=== PATIENT | female | born 1960 | race Caucasian/White ===

== ENCOUNTER 2020-12-13 15:35 | Inpatient (IN) | payer OTHER ==
[~2020-12-13] VITALS: Ht 165.1 cm; Wt 94.0 kg
[~2020-12-13 15:35] MED LIST: ALDACTONE25 MG PO; ALEVE220 MG PO; ANTIBIOTIC; ASPIR 8181 MG PO; ASPIRIN EC81 M1 PO; BENTYL 20 MG TA20 M1 PO; BUMETANIDE 1 MG1 M1 PO; BUSPIRONE HCL10 MG PO; BYDUREON2 MG SQ; CELEXA20 MG PO; COZAAR 50 MG TA50 M1 PO; COZAAR100 MG PO; CRESTOR20 MG PO; EFFIENT10 MG PO; FLAGYL500 M1 PO; FUROSEMIDE 40 M40 MG PO; GLIMEPIRIDE4 MG PO; GLIPIZIDE 10 MG10 MG PO; GLUCOPHAGE XR750 MG PO; GLUCOPHAGE500 MG PO; GLYBURIDE 5 MG T5 M1 PO; HYZAAR 100-12.1 EACH PO; IPRAT-ALBUT 0.5-3 ML INH; IRON325 M1 PO; JANUVIA100 MG PO; LEVAQUIN 500 M500 M2 PO; LISINOPRIL10 MG PO; LISINOPRIL20 MG PO; METOPROLOL SUC100 MG PO; MUPIROCIN22 GM TOP; NEURONTIN 300300 M1 PO; NEURONTIN600 MG PO; NICOTINE TRANSD21 M1 TRANSDERM; NITROGLYCERIN0.4 MG SUBLING; NITROQUICK0.4 MG SL; NORCO 5-325 TA1 EAC1 PO; NORVASC10 MG PO; OMEPRAZOLE40 MG PO; OXYCODONE-ACET1 EACH PO; PERCOCET 5-3251 EACH PO; PERCOCET 7.5-31 EACH PO; PERCOCET PO; PLAVIX 75 MG TA75 M1 PO; PREDNISONE 10 M10 MG PO; PREDNISONE 20 M20 MG PO; ROCEPHIN 11 GM/1001 IV; SPIRONOLACTONE25 MG PO; TOPROL XL100 MG PO; TOPROL XL50 MG PO; TOUJEO SOL300 UNIT/1 SUBQ; TRELEGY ELLIPT1 EACH INH; TRESIBA FL200 UNIT/1 SUBQ; VANCO 1.251.25 GM/25 IVPB; VENTOLIN HFA 1818 GM INH; VITAMIN B-121000 MC2 SUBLING; XANAX 0.25 MG0.25 MG PO; XANAX 0.5 MG0.5 M1 PO
[2020-12-13 15:40] VITALS: BP 144/64
--- NOTE | 2020-12-13 16:06 | NUR ---
TO UNIT BY CART FROM [facility], REPORT FROM REBA SANON. SWABBED FOR COVID IMMEDIATELY D/T DR. PATEL'S ORDER. ORIENTED TO UNIT, FALL PRECAUTIONS.
[2020-12-13 19:33] VITALS: BP 141/50
[2020-12-13 23:50] VITALS: BP 127/59
[2020-12-14] VITALS (66 sets, daily range): BP systolic 92–144; BP diastolic 46–66
[2020-12-14 04:58] LABS: BASOPHILS 1.4 % (0.0-2.0); EOSINOPHILS 0.8 % (0.0-3.0); HEMATOCRIT 25.2 % (37.0-47.0); HEMOGLOBIN 8.1 gm/dL (12.0-15.0); LYMPHOCYTES 12.1 % (24.0-44.0); MCH 26.6 pg (26.0-34.0); MCHC 32.1 g/dL (28.0-37.0); MCV 82.8 fL (80.0-100.0); PLATELET COUNT 244 thou/uL (150-400); POLYS 79.7 % (36.0-66.0); RBC 3.05 mil/uL (4.20-5.00); WBC 6.3 thou/uL (4.0-11.0)
[2020-12-14 05:02] LABS: CREATININE 1.2 mg/dL (0.6-1.0); MAGNESIUM 1.8 mg/dL (1.8-2.4); POTASSIUM 3.4 mmol/L (3.5-5.1)
--- NOTE | 2020-12-14 05:07 | NUR ---
PT ANXIOUS, STATING FEAR REGARDING SURGERY, REASSURANCE, EDUCATION AND COMFORT PROVIDED. DENIES PAIN, UP AD ARIK, LUNGS ARE DIMINISHED. RESTING INTERMITTENTLY. HIBACLENS BATH GIVEN, CLEAN GOWN, PT SITTING AT SIDE OF BED
--- NOTE | 2020-12-14 07:07 | NUR ---
report given to pre op and patient picked up by carton lettering machine operator at 0620. care surrendered
[2020-12-14 08:46] LABS: % SATURATION 11 % (20-39); IRON 22 ug/dL (50-170); TIBC 206 ug/dL (250-450)
--- NOTE | 2020-12-14 10:15 | NUR ---
chart review. she came from [facility] for surgery. she out of room for surgery. will cont following as needed for dc needs.
[2020-12-14 11:38] LABS: HEMATOCRIT 28.1 % (37.0-47.0); HEMOGLOBIN 8.8 gm/dL (12.0-15.0)
--- NOTE | 2020-12-14 13:42 | EKG ---
[address] [place] [address] ELECTROCARDIOGRAM REPORT Name: XU ARRIETA Room #: 249-P ADM IN M.R.#: [id number] Admission: 12/13/20 Attend Phys: Gómez Sykes MD Discharge: Date of : 62 Report #: [id number] [facility] Test Date: 2020-12-14 Test Time: 11:46:45 Pat Name: XU ARRIETA Department: Room: 249 P Gender: F Brusher Hand: NIMISHA : 1960 Requested By: Amos Jimenez Order Number: [id number] MD: George Corral Measurements Intervals [place] Rate: 99 P: 82 HI: 150 QRS: 3 QRSD: 116 T: 93 QT: 372 QTc: 478 Interpretive Statements Sinus rhythm Probable left atrial enlargement Left ventricular hypertrophy Anterior Q waves, possibly due to LVH Nonspecific T abnormalities, lateral leads No previous ECG available for comparison Electronically Signed On 12-14-2020 13:42:20 TRIAL MGR by George Corral [email or web address] <ELECTRONICALLY SIGNED> By: George Corral MD, [facility] 12/14/20 1342 1146 1146 George Corral MD, [facility] /EPI
--- NOTE | 2020-12-14 19:35 | NUR ---
PT ARRIVED TO THE UNIT AT 1238 PM. PT CONNECTED TO ICU MONITORS. PT ALERT AND ORIENTED x4. PT COMPLAINING OF PAIN. PT CONNECTED TO FENTANYL [employer]2EE JAVA DEVELOPER PUMP. RICK AT BEDSIDE. EXPLAINED ABOUT ICU POLICIES AND GIVEN ICU PHONE NUMBER. PT BLOOD GLUCOSE 257. PT STARTED ON INSULIN GTT. PT HYPERTENSIVE- BP IN UPPER 160'S- PT STARTED ON CARDED DRIP. CONTINUE TO MONITOR THE PT.
[2020-12-15] VITALS (46 sets, daily range): BP systolic 84–146; BP diastolic 40–71
[2020-12-15 05:16] LABS: HEMATOCRIT 25.4 % (37.0-47.0); HEMOGLOBIN 7.9 gm/dL (12.0-15.0); MCH 25.8 pg (26.0-34.0); MCV 83.3 fL (80.0-100.0); RBC 3.05 mil/uL (4.20-5.00)
[2020-12-15 05:46] LABS: CALCIUM 8.8 mg/dL (8.5-10.1); CREATININE 1.4 mg/dL (0.6-1.0)
--- NOTE | 2020-12-15 16:12 | NUR ---
chart review. cm was able to speak with spouse and pt up in recliner chair. cm cont to wear face mask and shield during visit. education on dcp. will cont following as needed for dc needs.
--- NOTE | 2020-12-15 19:51 | NUR ---
1950- Nurse updated patients spouse, Jed, on patient status, plan of care, and that she will receive a unit of blood tonight, as well as discontinued meat cooler. His questions were answered and the phone call was ended.
--- NOTE | 2020-12-15 20:22 | NUR ---
PATIENT NOT PROGRESSING SHE IS HYPOTENSIVE. UP IN THE CHAIR SHE IS COMFORTABLE AND ABLE TO REPOSITION SELF. DR LATIF AND DR ARAMBULA AWARE OF HYPOTENSION. PURCHASING MANAGER DC'D, PATIENT EDUCATED. DR SARAH ROUNDED. DENIES DIZZINESS OR FEELING LIGHT HEADED. MONITOR ST WITH RATE DECREASED FROM THE 120'S. WILL CONTINUE TO MONITOR.
[2020-12-16] VITALS (31 sets, daily range): BP systolic 83–126; BP diastolic 46–71
--- NOTE | 2020-12-16 04:40 | NUR ---
Patient sat in chair for the entire shift. States she cannot get comfortable in the bed. Feet eleveted on/off while in chair. Patient was up x1 to [facility] to have BM. Only gas. Stood well with good strength. Patient seems depressed and flat. Pain meds given at HS and at 0400. Patient states she takes 7.5 mg oxycodone 4 times a day at home everyday. Heart rate and rhythm stable in the low 100's. No ectopy. Blood pressures have been high 80's low 90's. Expected improvment after blood transfused but still sunning high 80's. [address] Maher. Discussed current vital signs, urine output, mental state, heart rhythm and overall condition. Dr. Maher said to just watch it for now. After patient was up to commode, patient did have a lot more pain and O2 sats dropped in to the 80's for awhile. Increased O2 per NC to 5 l/min. Will continue to monitor and titrate as needed. Low U/O. Am labs drawn and sent. Chest tubes remain intact with little drainage. See documentation on interventions for assessment details. Pt is progressing towards goals.
[2020-12-16 05:04] LABS: CALCIUM 7.1 mg/dL (8.5-10.1); CREATININE 1.7 mg/dL (0.6-1.0); MAGNESIUM 1.6 mg/dL (1.8-2.4); POTASSIUM 3.8 mmol/L (3.5-5.1)
[2020-12-16 06:25] LABS: HEMATOCRIT 23.3 % (37.0-47.0); HEMOGLOBIN 7.3 gm/dL (12.0-15.0); MCH 26.8 pg (26.0-34.0); MCHC 31.1 g/dL (28.0-37.0); MCV 86.3 fL (80.0-100.0); RBC 2.7 mil/uL (4.20-5.00); RDW 21.6 % (10.5-14.5); WBC 8.5 thou/uL (4.0-11.0)
--- NOTE | 2020-12-16 10:00 | NUR ---
aashish krause cm called offer to assist with dcp [phone]
--- NOTE | 2020-12-16 14:29 | NUR ---
discussed during rounds, there through the weekend. she getting another 2 units blood. she up in recliner with eyes open and spouse here to visit. will cont following as needed for dc needs.
[2020-12-16 15:07] LABS: HEMATOCRIT 24.6 % (37.0-47.0); HEMOGLOBIN 7.7 gm/dL (12.0-15.0)
--- NOTE | 2020-12-16 16:41 | HC ---
[facility] [place] [address] CONSULTATION Name: XU ARRIETA Room #: 249-P ADM IN M.R.#: [id number] Admission: 12/13/20 Attend Phys: Gómez Sykes MD Discharge: Date of : 62 Report #: [id number] THIS REPORT FOR: cc: Dwight Romero MD, Anthony MD Geha,Gigi Gar MD ~ DATE OF SERVICE: 12/13/2020 INFECTIOUS DISEASE CONSULTATION REASON FOR CONSULTATION: I was asked to evaluate concerning right chest empyema. HISTORY OF PRESENT ILLNESS: The patient is a 60-year-old who was transferred from [facility] for Cardiothoracic Surgery evaluation regarding her right chest. She was initially hospitalized on 11/22/2020 with shortness of breath. [place] to have community-acquired pneumonia. No positive cultures were identified from sputum or blood. She had a persistent right pleural effusion. She underwent thoracentesis, but developed a pneumothorax and required chest tube placement. Subsequently, developed loculated pleural effusion and Cardiothoracic Surgery was consulted. Plan was to proceed with VATS. The patient was on combination anticoagulation due to her recent stenting in June of this past year. Therefore, surgery was postponed and chest tube was placed. She then dropped her hemoglobin and anticoagulation had to be held. She stabilized without further GI service endoscopy. This was to be performed following discharge. By 11/30/2020, she was discharged only to return on 12/06/2020 again with more shortness of breath. Found to have loculated right chest effusion. Blood cultures were obtained on 12/10/2020, 1 of 2 showing MRSA. Noted that the pleural effusion that was tapped on 11/23/2020 was no growth. Sputum culture on 11/25/2020 revealed normal rishi. The patient has had minimal cough. She did have a non-STEMI identified with plans for repeat cardiac catheterization after the chest issues resolved. She has had no nausea, vomiting or diarrhea. Appetite has been good. Still has chest discomfort on the right, mostly around where her chest tube was in place. No dysuria or frequency. There has been no bleeding episodes identified. REVIEW OF SYSTEMS: A 14-point review was negative other than what has been described above. ALLERGIES: IBUPROFEN. MEDICATIONS: As noted on her MAR including vancomycin and ceftriaxone. PAST MEDICAL HISTORY: Coronary catheterization with 7 stents, cholecystectomy, [facility] [address] [place] [address] CONSULTATION Name: XU ARRIETA Room #: 249-P [facility] IN ..#: [id number] Admission: 12/13/20 Attend Phys: Gómez Sykes MD Discharge: Date of : 62 Report #: [id number] endometriosis, ovarian cyst, diabetes, hypertension, [place] in 2011, congestive heart failure, COPD, hyperlipidemia. FAMILY HISTORY: Negative for tuberculosis. SOCIAL HISTORY: Current smoker, no significant alcohol intake. PHYSICAL EXAMINATION: VITAL SIGNS: Afebrile and hemodynamically stable. GENERAL: Alert and cooperative, in no distress. SKIN: Without rash or decubitus. She did have an eschar into the right chest from previous chest tube. No palpable adenopathy. EYES: Without scleral icterus. MOUTH: Without mucositis. NECK: Supple. She was moderately obese. LUNGS: Decreased breath sound in the right base posteriorly. No consolidation. HEART: Regular, without murmur, gallop or rub. ABDOMEN: Soft and nontender with no hepatosplenomegaly or mass. EXTREMITIES: With 1+ peripheral edema in the lower extremities. NEUROLOGIC: Cranial nerves intact. Strength in the upper and lower extremities was symmetric and within normal limits. Mood without anxiety or depression. LABORATORY STUDIES: Reviewed. MICROBIOLOGY: Reviewed. IMAGING: Chest x-ray and CT scan of the chest reviewed. Noted loculated right pleural effusion. IMPRESSION: 1. Community-acquired pneumonia, congestive heart failure, MRSA bacteremia with evidence of loculated right pleural effusion and persistent right middle and lower lobe pulmonary infiltrate. 2. Diabetes. 3. Anemia. 4. Recent non-ST segment myocardial infarction. 5. Renal insufficiency. RECOMMENDATIONS: We will continue current antibiotic program pending surgical intervention. We will repeat cultures at the time of surgery. Monitor for anemia or further cardiac ischemia. Check vancomycin level. <ELECTRONICALLY SIGNED> By: Gigi Duncan MD 12/16/20 1641 0142 0153 Gigi Duncan MD /nt
--- NOTE | 2020-12-16 19:43 | NUR ---
PATIENT IS PROGRESSING TOWARDS OUTCOME GOALS. PAIN IS CONTROLLED WITH PAIN REGIMENT. ABLE TO DOZE AT INTERVALS. OCC STRONG PRODUCTIVE COUGH. BP AND URINE OUTPUT SL IMPROVED. WILL CONTINUE TO MONITOR. DR ARAMBULA UPDATED AND DR PATEL ROUNDED THIS AFTERNOON AND AWARE OF PATIENT'S STATUS.
[2020-12-17] VITALS (22 sets, daily range): BP systolic 99–151; BP diastolic 54–76
[2020-12-17 04:34] LABS: HEMATOCRIT 27.4 % (37.0-47.0); HEMOGLOBIN 8.8 gm/dL (12.0-15.0); MCH 27.9 pg (26.0-34.0); MCHC 32.2 g/dL (28.0-37.0); MCV 86.4 fL (80.0-100.0); RBC 3.18 mil/uL (4.20-5.00); RDW 20.2 % (10.5-14.5); WBC 7.4 thou/uL (4.0-11.0)
[2020-12-17 04:38] LABS: CALCIUM 8.5 mg/dL (8.5-10.1); CREATININE 1.5 mg/dL (0.6-1.0); MAGNESIUM 2.2 mg/dL (1.8-2.4); POTASSIUM 4.2 mmol/L (3.5-5.1)
--- NOTE | 2020-12-17 09:30 | NUR ---
PAGED DR. ELLIE SANTOS TR. NO REPONSE. INFORMED DR. AMANDA ATKINSON 12 STATES HE IS SURE THEY ARE GOING TO DC THIS MED.
--- NOTE | 2020-12-17 10:00 | NUR ---
DR. PATEL HERE UPDATE GIVEN. CHEST TUBES DCD PER MD. PT AT BEDSIDE. PT REMAINS VERY ANXIOUS BUT REFUSES ANTI ANXIETY MEDS.
--- NOTE | 2020-12-17 10:20 | NUR ---
DR. PATEL HERE. UPDATE GIVEN, REPORTED MG LOW. ORDERS GIVEN. TITRATING CARDENE FOR SBP < 60 / ROTATING SITE EVERY TWELVE HOURS. PT REOPORTS NO PAIN. GROIN STABLE. L CAROTID SITE CDI.
--- NOTE | 2020-12-17 12:30 | NUR ---
TEXTED DR. JORDAN THAT PT BLOOD SUGAR WAS ELEVATED. NO RESPONSE.
--- NOTE | 2020-12-17 14:20 | NUR ---
PT NOSE IS BLEEDING SLIGHTLY. PT ENCOURAGED NOT TO BLOW NOSE OR PICK AT IT. 4X4S GIVEN. SCANT AMT OF BLEEDING NOTED. TEXTED TO DR. JORDAN. NO RESPONSE BACK. PT STABLE. CARDENE ON AND OFF. OOB TO CHAIR WITHOUT DIFFICULTY.
--- NOTE | 2020-12-17 18:00 | NUR ---
DR. PATEL HERE. WANTS TO KEEP PT IN ICU ONE MORE DAY.
--- NOTE | 2020-12-17 18:00 | NUR ---
DR. PATEL BACK. STATES WE CAN TAKE ARTLINE OUT IF CARDENE WEANED OFF. STATES WE CAN USE NBP IF LOWER. KEEP SBP<60. PT PROGRESSING TOWARDS GOALS EXCEPT HTN.
--- NOTE | 2020-12-17 18:00 | NUR ---
CALLED DR. ARGUETA AGAIN REGARDING TOM MORRIS MD STATES TO CONTINUE THIS MEDICATION. NOC NURSE INFORMED.
--- NOTE | 2020-12-17 19:15 | NUR ---
PT PROGRESSING TOWARDS GOALS. REMAINS ANXIOUS. SITTING UP IN CHAIR. LE ELEVATED.
--- NOTE | 2020-12-17 23:01 | NUR ---
ASSUMED CARE AT 1899. PT UTILIZED BSC ABOUT 1929, URINATED W/O ISSUE POST-SAPP REMOVAL. REPORTS PAIN IN RIGHT CHEST/SIDE IS LOW, DECLINED PAIN MEDS AT HS. 2129 ASSISTED INTO BED. 2234-PT WOKE UP MODERATELY PANICKED, SAYING SHE COUDLN'T BREATHE, OS SATS ABOUT 93%. ASSISTED TO SIDE OF BED THEN CHAIR, SATS IMPROVED; GAVE PRN XANAX TO HELP PT CALM DOWN.
[2020-12-18] VITALS (25 sets, daily range): BP systolic 73–136; BP diastolic 10–94
[2020-12-18 04:30] LABS: CALCIUM 8.9 mg/dL (8.5-10.1); CREATININE 1.3 mg/dL (0.6-1.0); MAGNESIUM 2.6 mg/dL (1.8-2.4); POTASSIUM 4.8 mmol/L (3.5-5.1)
--- NOTE | 2020-12-18 08:24 | O ---
[facility] [place] [address] OPERATIVE REPORT Name: XU ARRIETA Room #: 249-P ADM IN M.R.#: [id number] Admission: 12/13/20 Attend Phys: Gómez Sykes MD Discharge: Date of : 62 Report #: [id number] THIS REPORT FOR: cc: Dwight Romero MD,Dwight Maher,Gibson Ponce MD ~ DATE OF SERVICE: 12/14/2020 PREOPERATIVE DIAGNOSIS: Empyema, right chest. POSTOPERATIVE DIAGNOSIS: Empyema with clotted hemothorax. OPERATION: Bronchoscopy, right video-assisted thoracoscopy, right thoracotomy with decortication. SURGEON: Gibson Maher MD COO & CO FOUNDER: ROGER Lazaro. ANESTHESIA: General. INDICATIONS: The patient is a 60-year-old who was transferred from [facility]. The patient presented with shortness of breath and a pleural effusion approximately 2 weeks ago. The patient had thoracentesis, but this may have led to some hemorrhage and a chest tube was placed. The effusion seemed to resolve, tube was removed and the patient was discharged. The patient returned to the hospital; however, with shortness of breath. Chest x-ray and CT scan showed a loculated pleural effusion consistent with organizing empyema and a recommendation was made for decortication when radiology felt that a repeat tube placement was not appropriate. FINDINGS AND TECHNIQUE: After general anesthesia was established, flexible diagnostic bronchoscopy was performed. No endobronchial lesions were noted. <ELECTRONICALLY SIGNED> By: Gibson Maher MD 12/18/20 0824 1232 1357 Gibson Maher MD /nt
[2020-12-18 10:06] LABS: HEMATOCRIT 27.6 % (37.0-47.0); HEMOGLOBIN 8.5 gm/dL (12.0-15.0); MCHC 30.6 g/dL (28.0-37.0); MCV 88.2 fL (80.0-100.0); RBC 3.13 mil/uL (4.20-5.00); RDW 21.3 % (10.5-14.5)
--- NOTE | 2020-12-18 14:48 | NUR ---
PT TRANSFERRED TO CCU ROOM 219 VIA WHEELCHAIR ACCOMPANIED BY THIS RN. REPORT GIVEN TO REBA MUNGUIA. PT INCISION AT RIGHT BACK AND FOUR CHEST TUBE DRESSING SITE WAS ASSESSED BY THIS RN AND REBA MUNGUIA AT BEDSIDE. PT PREVIOUS CHEST TUBE INSERTION SITE DRESSING WAS CHANGED AT BEDSIDE. PT WAS CONNECTED TO CCU TELEMETRY. PT SON AT BEDSIDE AND INFORMED BY THE SON ABOUT PT TRANSFER. PT WAS CONNECTED TO 3L OXYGEN. CONTINUE TO MONITOR.
[2020-12-18 14:52] LABS: HEMATOCRIT 27.1 % (37.0-47.0); HEMOGLOBIN 8.9 gm/dL (12.0-15.0); MCHC 32.7 g/dL (28.0-37.0); MCV 85.8 fL (80.0-100.0); RBC 3.16 mil/uL (4.20-5.00); RDW 21.1 % (10.5-14.5); WBC 6.7 thou/uL (4.0-11.0)
--- NOTE | 2020-12-18 17:53 | NUR ---
PT TRANSFERED FROM ICU IN STABLE CONDITION. VSS. SOB NOTED WITH ACTIVITY. RT TREATMENT GIVEN ORDERED. ENCOURAGED TO USE IS.
[2020-12-19 03:54] VITALS: BP 149/70
[2020-12-19 06:14] LABS: BE(vivo) 0.5 mmol/L (-2 to +3); HCO3 25.5 mmol/L (22.0-26.0); PCO2 42.3 mmHg (35.0-45.0); PO2 156.6 mmHg (80.0-100.0); pH 7.398 (7.360-7.450)
--- NOTE | 2020-12-19 06:36 | NUR ---
PATIENT HAS ANXIETY.BUSPIRONE AND XANAX GIVEN.PT RECEIVED RT TREATMENT FOR SOB.LUNG SOUNDS COARSE/CRACKLES AND DIMINISHED ON THE BASES.THIS AM; PT COMPLAIN OF SOB AGAIN.ABG DONE PER RT AND PLACED PT ON BIPAP.PULMONOLOGY WAS CONSULTED.POC CONTINUED.
[2020-12-19 07:54] VITALS: BP 144/77
--- NOTE | 2020-12-19 08:29 | HC ---
[facility] [place] [address] CONSULTATION Name: XU ARRIETA Room #: 219-P ADM IN M.R.#: [id number] Admission: 12/13/20 Attend Phys: Gómez Sykes MD Discharge: Date of : 62 Report #: [id number] THIS REPORT FOR: cc: Dwight Romero MD,Dwight Raines,Mesfin Larkin MD [facility] ~ DATE OF SERVICE: 12/17/2020 CARDIOLOGY CONSULTATION HISTORY OF PRESENT ILLNESS: The patient is a 60-year-old white female who I was asked to see in the hospital today at [facility] ICU because of her history of coronary artery disease. The patient has an extensive and complicated past medical history. She has had multiple stents in the past. Her first stent was at [facility] apparently in 2011 when she had stents placed in her LAD. She has had a total of 7 stents since that time. She was last admitted to [facility] in 06/[address] Perez. He performed repeat heart catheterization that showed total occlusion of the LAD, circumflex had a 90% stenosis. The right coronary artery had no significant stenosis, ejection fraction 45%. I then placed stents in the circumflex artery. She was recently admitted to [facility] with shortness of breath. She was found to have a pleural effusion and was anemic. She had borderline elevation of troponin. She had a thoracentesis performed. She is noted to have bloody fluid. She was transferred to [facility] [address] Gibson Maher performed thoracotomy with evacuation of a bloody effusion. Cardiology consultation was requested. At this time, she denies recent chest pain. She does have some shortness of breath and a cough. She denies any palpitations or syncope. PAST MEDICAL HISTORY: Otherwise significant for cholecystectomy, tonsillectomy, hypertension, diabetes, hyperlipidemia. MEDICATIONS: Previous medications included nebulized treatments, Xanax, aspirin, Plavix, Lasix, Neurontin, Amaryl, insulin, losartan, metoprolol, omeprazole, Crestor, Januvia, spironolactone. ALLERGIES: SHE HAS A PREVIOUS INTOLERANCE TO IBUPROFEN. FAMILY HISTORY: Positive for heart disease. SOCIAL HISTORY: She is . She and her live in [place], [place]. Smokes half pack of cigarettes a day. No alcohol abuse. REVIEW OF SYSTEMS: She has a history of sleep apnea and has oxygen at home. She has a history of asthma, uses inhaler. No history of liver disease, kidney disease. She has a history of anemia, but no recent bleeding. She has skin [facility] [address] [facility] [place] [address] CONSULTATION Name: XU ARRIETA Room #: 219-P [facility] IN M.R.#: [id number] Admission: 12/13/20 Attend Phys: Gómez Sykes MD Discharge: Date of : 62 Report #: [id number] cancer removed in the past. No chronic skin condition. No psychiatric illness. PHYSICAL EXAMINATION: GENERAL: Revealed a middle-aged female lying in bed. She appeared in no acute distress. INCOMPLETE DICTATION <ELECTRONICALLY SIGNED> By: Mesfin Raines MD, FACC 12/19/20 0829 1035 1045 Mesfin Raines MD, FACC /nt
--- NOTE | 2020-12-19 08:29 | HC ---
[facility] [place] [address] CONSULTATION Name: XU ARRIETA Room #: 219-P ADM IN M.R.#: [id number] Admission: 12/13/20 Attend Phys: Gómez Sykes MD Discharge: Date of : 62 Report #: [id number] THIS REPORT FOR: cc: Dwight Romero MD,Dwight Raines,Mesfin Larkin MD [facility] ~ DATE OF SERVICE: 12/17/2020 CONTINUATION DICTATION You can add this addendum to the previous dictation, which I started on the patient earlier today and got interrupted, the remaining dictation should be, The patient had an ECG that showed a normal sinus rhythm. She had a late transition noted. Her most recent chest x-ray done this morning showed thoracostomy tube in place, some atelectasis, small effusions, cardiomegaly, no heart failure. LABORATORY WORK: Her most recent lab work is sodium 132, creatinine 1.5. Her white blood cell count 7.4; hemoglobin is 8.8, it was 7.3 yesterday. The patient had an echocardiogram done last summer showed ejection fraction of 45%. IMPRESSION AND RECOMMENDATIONS: 1. Coronary artery disease. The patient has had 7 stents in the past, most recently 6 months ago. I would recommend resuming aspirin and Plavix, she is not felt to be at risk for bleeding. 2. Sleep apnea. 3. Tobacco abuse. 4. Chronic obstructive pulmonary disease. 5. Pneumonia with bloody pleural effusion, the patient has a chest tube in place. 6. Hypertension. The patient has been on an ARB, beta-padma in the past. 7. Diabetes. 8. Hyperlipidemia. The patient is on a statin drug. 9. Obesity. The patient is 5 feet 5 inches and weighs 212 pounds. 10. Anemia. No obvious source of bleeding. We would consider GI workup in the past. <ELECTRONICALLY SIGNED> By: Mesfin Raines MD, [facility] 12/19/20 0829 1044 1051 Mesfin Raines MD, [facility] /nt
[2020-12-19 09:47] LABS: HEMATOCRIT 28.9 % (37.0-47.0); HEMOGLOBIN 9.2 gm/dL (12.0-15.0); MCH 27.4 pg (26.0-34.0); MCHC 31.8 g/dL (28.0-37.0); MCV 86.2 fL (80.0-100.0); RBC 3.36 mil/uL (4.20-5.00); RDW 21.4 % (10.5-14.5); WBC 7.7 thou/uL (4.0-11.0)
[2020-12-19 09:52] LABS: CALCIUM 9.6 mg/dL (8.5-10.1); CREATININE 1.3 mg/dL (0.6-1.0); MAGNESIUM 2.5 mg/dL (1.8-2.4); POTASSIUM 4.3 mmol/L (3.5-5.1)
[2020-12-19 12:13] VITALS: BP 141/65
--- NOTE | 2020-12-19 12:18 | 2DMMODE ---
[address] [address] D/M-MODE ECHOCARDIOGRAM Name: XU ARRIETA Room #: 219-P ADM IN M.R.#: [id number] Admission: 12/13/20 Attend Phys: Gómez Sykes MD Discharge: Date of : 62 Report #: [id number] THIS REPORT FOR: cc: Dwight Romero MD, Anthony MD Park, Jin S. MD ~ APPROVED REPORT Study performed: 12/19/2020 10:29:52 EXAM: Comprehensive 2D, Doppler, and color-flow Echocardiogram Patient Location: Bedside Room #: 219 Status: routine BSA: 2.10 HR: 105 bpm BP: 144/77 mmHg Rhythm: Tachycardia Other Information Study Quality: Technically Limited Technically limited study due to body habitus, inability to position patient, patient was sittting up. Indications Congestive Heart Failure Diabetes Dyspnea Cardiomyopathy 2D Dimensions IVC: 25.00 mm Tricuspid Valve TR Peak Randall.: 3.34 m/s TR Peak Gr.: 44.50 mmHg PA Pressure: 60.00 mmHg Left Ventricle The left ventricle is normal size. There is global hypokinesis of the left ventricle. There is normal left ventricular wall thickness. Left ventricular systolic function is moderate to severely decreased. LVEF is 35%. This study is not technically sufficient to allow evaluation of the LV diastolic function. [address] [address] 2 D/M-MODE ECHOCARDIOGRAM Name: XU ARRIETA Room #: 219-P ADM IN M.R.#: [id number] Admission: 12/13/20 Attend Phys: Gómez Sykes MD Discharge: Date of : 62 Report #: [id number] Right Ventricle The right ventricle is normal size. The right ventricular systolic function is normal. Atria Left atrium is at the upper limits of normal. Right atrium is at the upper limits of normal. Aortic Valve The aortic valve is normal in structure. The Aortic valve is sclerotic. No aortic regurgitation is present. There is no aortic valvular stenosis. Mitral Valve The mitral valve is normal in structure. At least moderate mitral regurgitation. No evidence of mitral valve stenosis. Tricuspid Valve The tricuspid valve is normal in structure. There is mild tricuspid regurgitation. Estimated PAP 50 mmHg. There is moderate pulmonary hypertension. Pulmonic Valve The pulmonary valve is normal in structure. There is no pulmonic valvular regurgitation. Great Vessels The aortic root is normal in size. The inferior vena cava is dilated with no inspiratory collapse. Pericardium There is no pericardial effusion. <Conclusion> The left ventricle is normal size. Left ventricular systolic function is moderate to severely decreased. LVEF is 35%. The right ventricle is normal size. The Aortic valve is sclerotic. [address] [address] 2 D/M-MODE ECHOCARDIOGRAM Name: XU ARRIETA Room #: 219-P [facility] IN M.R.#: [id number] Admission: 12/13/20 Attend Phys: Gómez Sykes MD Discharge: Date of : 62 Report #: [id number] At least moderate mitral regurgitation. There is mild tricuspid regurgitation. Estimated PAP 50 mmHg. <ELECTRONICALLY SIGNED> By: Dre Urrutia MD 12/19/20 1217 16 16 Dre Urrutia MD /INF
--- NOTE | 2020-12-19 14:40 | NUR ---
Patient transferred from ICU to 2N. Sp with Dr Mosley and Reji with CTS. They report patient needs 5N acute rehab. Sp with RN to discuss visiting with patient. At this time patient is not feeling well. Discussion of possible transfer to ICU. No plan for casemgt to visit with patient today.
[2020-12-19 15:36] VITALS: BP 131/54
--- NOTE | 2020-12-19 15:57 | EKG ---
[address] [address] ELECTROCARDIOGRAM REPORT Name: XU ARRIETA Room #: 219-P ADM IN M.R.#: [id number] Admission: 12/13/20 Attend Phys: Gómez Sykes MD Discharge: Date of : 62 Report #: [id number] [facility] Test Date: 2020-12-19 Test Time: 09:35:58 Pat Name: XU ARRIETA Department: Room: 219 P Gender: F Water Quality Specialist: NIMISHA : 1960 Requested By: Karsten Felix Order Number: [id number] MD: George Corral Measurements Intervals [place] Rate: 112 P: 63 MN: 155 QRS: 4 QRSD: 106 T: 76 QT: 335 QTc: 458 Interpretive Statements Sinus tachycardia Consider anterior infarct Compared to ECG 12/14/2020 11:46:45 Myocardial infarct finding now present Sinus rhythm no longer present Left ventricular hypertrophy no longer present Q waves no longer present T-wave abnormality no longer present Electronically Signed On 12-19-2020 15:57:02 PERSONNEL RECRUITER by George Corral [email or web address] <ELECTRONICALLY SIGNED> By: George Corral MD, [facility] 12/19/20 1557 0935 0935 George Corral MD, [facility] /EPI
--- NOTE | 2020-12-19 18:27 | NUR ---
ASSUMED CARE OF PT AT SHIFT CHANGE. ASSESSMENTS CHARTED. MEDS GIVEN PER DEC. PT A&OX4, NO C/O PAIN. C/O SOA TREATED WITH LASIX, 3L NC. PT IN TRIPOD POSITION OVER BEDSIDE TABLE MOST OF DAY. SAPP IN PLACE FOR ACCURATE I&O. LASIX GIVEN. CXR FOR TOMORROW MORNING. WILL CONTINUE TO MONITOR FOR CHANGES AND FOLLOW POC.
[2020-12-19 19:40] VITALS: BP 135/72
[2020-12-20 05:06] LABS: HEMATOCRIT 26.8 % (37.0-47.0); HEMOGLOBIN 8.5 gm/dL (12.0-15.0); MCH 27.4 pg (26.0-34.0); MCHC 31.8 g/dL (28.0-37.0); RBC 3.11 mil/uL (4.20-5.00); RDW 21.7 % (10.5-14.5); WBC 6.9 thou/uL (4.0-11.0)
[2020-12-20 05:07] VITALS: BP 120/66
[2020-12-20 05:14] LABS: CALCIUM 9.4 mg/dL (8.5-10.1); CREATININE 1.2 mg/dL (0.6-1.0)
[2020-12-20 05:36] LABS: TROPONIN-I 0.95 ng/mL (<0.06)
[2020-12-20 07:10] VITALS: BP 134/79
--- NOTE | 2020-12-20 08:48 | NUR ---
ASSUME CARE 1900. PT/VITALS STABLE. INTERMITTENT INCISIONAL PAIN WITH MODERATE RELIEF FROM HYDROCODONE. TOLERATES ACTIVITY WELL. ASSESSMENT CHARTED, PROGRESSING WELL WITH POC. NO DISTRESS NOTED THROUGH NIGHT. VERY SOB EVEN WITH JUST TALKING/MOSTLY IN TRIPOD POSITION TO EASE BREATHING. 36LNC WITH SATS WITHIN 95-98%. BIPAP ON X 2HOURS AND TAKEN OFF/ PT INSISTS ON WEARING BIPAP. EDUCATION ON SURGEON'S ADVICE NOT TO WEAR BIPAP/PT ADAMANT. POOR APPETITTE NOTED. BORDERLINE URINE OUTPUT PER SAPP. PLAN IS TO CONTINUE TO EVALUATE ACTIVITY FOR POSSIBLE DISCHARGE TO 5[facility]. WILL CONTINUE TO MONITOR AND FOLLOW WITH POC
[2020-12-20 11:40] VITALS: BP 122/61
[2020-12-20 15:15] VITALS: BP 117/59
--- NOTE | 2020-12-20 15:39 | NUR ---
met with patient and spouse at bedside. Patient direct admits from [facility] for pleural effusion. transferred to [facility] /. Patient rec bronch, VATS, thoracotomy with chest tube. Patient was in ICU transferred to CCU. Patient resides in independent home with spouse and son. She was independent with adls captain waiter. Last dc from [facility] patient rec nocturnal oxygen. Spouse cannot recall agency but will look at concentrator at home. Patient does not have walker/cane at home. She reports she has not worked for a year and retired. Discussed post acute care. Discussed eval from [facility]. Spouse reports their first choice is [facility] acute rehab unit. Spouse reports staying at [facility] would assist with continuity of care. [facility] following. Casemgt following.
[2020-12-20 19:50] VITALS: BP 113/43
[2020-12-20 20:20] LABS: CALCIUM 9.6 mg/dL (8.5-10.1); CREATININE 1.4 mg/dL (0.6-1.0); POTASSIUM 3.7 mmol/L (3.5-5.1)
--- NOTE | 2020-12-21 04:30 | NUR ---
DR. PATEL ROUNDED ON PT. STATES SHE STILL NEEDS HER SAPP AND IS NOT READY TO TRANFER TO REHAB YET.
[2020-12-21 05:22] VITALS: BP 125/49
[2020-12-21 05:26] LABS: HEMATOCRIT 27.2 % (37.0-47.0); HEMOGLOBIN 8.5 gm/dL (12.0-15.0); MCH 26.8 pg (26.0-34.0); MCHC 31.3 g/dL (28.0-37.0); MCV 85.6 fL (80.0-100.0); RBC 3.18 mil/uL (4.20-5.00); RDW 21.6 % (10.5-14.5); WBC 7.9 thou/uL (4.0-11.0)
[2020-12-21 05:35] LABS: CALCIUM 9.2 mg/dL (8.5-10.1); CREATININE 1.4 mg/dL (0.6-1.0); MAGNESIUM 1.7 mg/dL (1.8-2.4); POTASSIUM 3.5 mmol/L (3.5-5.1)
[2020-12-21 07:10] VITALS: BP 111/59
--- NOTE | 2020-12-21 07:53 | NUR ---
ASUMED PT CARE AT 1900. VSS. PT A&0X4. DIDNT GET MUCH REST THROUGH THE [facility]. PT IS ANXIOUS PAIN MANAGED PER DEC. BIPAP AT [facility]. COMPLAINED OF NOSEBLEED THIS AM. WILL COMMUNICATE TO AM NURSE. NC 02 IS HUMMIDIFIED; WILL CONTINUE TO MONITOR PER POC.
--- NOTE | 2020-12-21 11:07 | PATH ---
[facility] [address] [place] [address] PATHOLOGY RPT PROCEDURE Name: BRITTANY ARRIETA Room #: 219-P ADM IN M.R.#: [id number] Admission: 12/13/20 Date of : 62 Discharge: Report #: [id number] Path Case #: [id number] [facility] Accession Number: [id number] . 01 Material submitted: . pleura - RIGHT PLEURAL PEEL. Modifiers: right . 01 Clinical history: . PLEURAL EFFUSION,RIGHT . 02 Diagnosis: Pleura, "right", decortication: - Fibrinous pleuritis, with reactive pleural fibrosis. - Negative for malignancy. - Please see comment. . (DEE:candice; 12/20/2020) QLM 12/21/2020 1037 Local . 02 Comment: The case is seen in co-review with Dr. John Campa, who concurs with the above diagnosis. . (MLK:mml; 12/20/2020) . 02 Electronically signed: . Katina Beckman MD, Pathologist NPI- [id number] . 01 Gross description: . The specimen is received in formalin, labeled "Brittany Arrieta, right pleural peel". Received is a 14.8 x 13.9 x 5.0 cm aggregate of shaggy cotton-brown to light estevez possible tissue admixed with blood coagulum. The specimen is submitted representatively in cassette A1. (CAA; 12/15/2020) . After initial microscopic examination, additional sales representative metals sections are submitted in cassettes A2 through A6. (CAA; 12/16/2020) QAC/QAC 12/16/2020 1748 Local . 02 Pathologist provided ICD-10: R09.1 . 02 CPT . 415083 Specimen Comment: Report sent to , / [place] [address] PATHOLOGY RPT PROCEDURE Name: BRITTANY ARRIETA Room #: 219-P ADM IN M.R.#: [id number] Admission: 12/13/20 Date of : 62 Discharge: Report #: [id number] Path Case #: [id number] Performed at: 01 [facility] [place] [address], [place], [place] [id number] MD Scottie Avila MD Phone: [phone] Performed at: [address] [id number] MD John Campa MD Phone: [phone]
[2020-12-21 11:15] VITALS: BP 125/63
--- NOTE | 2020-12-21 11:24 | NUR ---
Case discussed with the care team. [facility] band saw marker to reasess and submit for ins auth today. Pt was on bipap briefly during the night but only on o2 during the daytime. CTS advocating for acute rehab stay. They do have a bed available when auth obtained.
--- NOTE | 2020-12-21 13:31 | NUR ---
PATIENT IS A CANDIDATE FOR [facility] ACUTE REHAB. AUTHORIZATION REQUESTED FROM PATIENT'S INSURANCE, [id number]. CLINICAL INFORMATION FAXED THIS DTAE. WILL AWAIT INSURANCE RESPONSE. THANK YOU FOR THIS REFERRAL.
[2020-12-21 16:30] VITALS: BP 107/47
[2020-12-21 20:15] VITALS: BP 116/49
[2020-12-22 00:14] VITALS: BP 143/60
[2020-12-22 04:45] VITALS: BP 107/52
[2020-12-22 06:18] LABS: HEMATOCRIT 24.7 % (37.0-47.0); HEMOGLOBIN 7.9 gm/dL (12.0-15.0); MCH 27.2 pg (26.0-34.0); MCHC 32.1 g/dL (28.0-37.0); MCV 84.7 fL (80.0-100.0); RBC 2.92 mil/uL (4.20-5.00); RDW 21.9 % (10.5-14.5); WBC 6.6 thou/uL (4.0-11.0)
[2020-12-22 06:28] LABS: CALCIUM 8.7 mg/dL (8.5-10.1); CREATININE 1.3 mg/dL (0.6-1.0); MAGNESIUM 1.9 mg/dL (1.8-2.4); POTASSIUM 3.7 mmol/L (3.5-5.1)
--- NOTE | 2020-12-22 06:58 | NUR ---
SLEPT MOST OF SHIFT. UP WITH STANDBY ASSIST IN ROOM. PATIENT HAD ANXIETY ATTACK THIS AM AND XANAX GIVEN. WORKING ON GOALS AND PLAN OF CARE FOR NOC. NO PRESENT COMPLAINTS OF PAIN THIS AM PAST MEDICATION. REMAINS ON 3L/NC WITH SOME SHORTNESS OF AIR WITH ACTIVITY. PLANS FOR POSSIBLE TRANSFER TO REHAB TODAY. CONTINUE TO TELMA CHAWLA.
[2020-12-22 08:15] VITALS: BP 112/55
[2020-12-22 12:15] VITALS: BP 119/46
--- NOTE | 2020-12-22 13:25 | NUR ---
Case discussed with the care team. Ins auth rec'd from the insurance plan per [facility] liason. They can accept today. Pt is aware and agreeable. The attending and CTS were updated. Plan is dc to acute rehab this afternoon. [facility] rehab cm to follow for hh/dme needs.
[2020-12-22] MEDS ORDERED: COZAAR 25 MG TA25 M2 PO (13:32)
[2020-12-22] MEDS ORDERED: METOPROLOL SUCC50 MG PO (13:32)
[2020-12-22] MEDS ORDERED: SPIRONOLACTONE25 M1 PO (13:33)
[2020-12-22] MEDS ORDERED: LASIX 40 MG TAB40 M1 PO (13:33)
[2020-12-22] MEDS ORDERED: LANTUS SUBQ (13:35)
[2020-12-22] MEDS ORDERED: LIDOPATCH1 EACH TRANSDERM (13:36)
[2020-12-22] MEDS ORDERED: VANCO1GM IV (13:39)
--- NOTE | 2020-12-24 11:09 | O ---
[facility] [place] [address] OPERATIVE REPORT Name: XU ARRIETA Room #: 219-P [facility] IN M.R.#: [id number] Admission: 12/13/20 Attend Phys: Gómez Sykes MD Discharge: 12/22/20 Date of : 62 Report #: [id number] THIS REPORT FOR: cc: Dwight Romero MD, Anthony MD Forman,Gibson Ponce MD ~ DATE OF SERVICE: 12/14/2020 PREOPERATIVE DIAGNOSIS: Empyema, right chest. POSTOPERATIVE DIAGNOSIS: Empyema with clotted hemothorax. OPERATION: Bronchoscopy, right video-assisted thoracoscopy, right thoracotomy with decortication. SURGEON: Gibson Maher MD RESOURCE AGENT: ROGER Lazaro. ANESTHESIA: General. INDICATIONS: The patient is a 60-year-old who was transferred from [facility]. The patient presented with shortness of breath and pleural effusion approximately 2 weeks prior to surgery. The patient had thoracentesis at that time, but this appears to have led to some hemorrhage and a chest tube was placed. Subsequently, the effusion seemed to resolve with the chest tube and the tube was removed and the patient was discharged. The patient returned to the hospital, however, with shortness of breath. Chest x-ray and CT scan showed loculated pleural effusion consistent with an organizing empyema and a recommendation was made for decortication after discussing the case with Radiology, who was not interested in repeat tube placement. FINDINGS AND TECHNIQUE: After general anesthesia was established, flexible diagnostic bronchoscopy was performed. No endobronchial lesions were noted. The patient was positioned with the right side up. After a double lumen endotracheal tube was placed, the position of the tube was checked with bronchoscopic guidance. The patient was positioned with right side up. Exposure was obtained through video-assisted thoracoscopy ports. The lung was adherent to the parietal pleura and there were areas of clot and organization that meant the video approach was not satisfactory. That led to exposure being extended into a posterolateral thoracotomy. Chest [facility] [address] [place] [address] OPERATIVE REPORT Name: XU ARRIETA Room #: 219-P [facility] IN M.R.#: [id number] Admission: 12/13/20 Attend Phys: Gómez Sykes MD Discharge: 12/22/20 Date of : 62 Report #: [id number] was entered through an available interspace and a full decortication was performed. Lung was peeled away from chest wall and a thick fibrous envelope around the lung was decorticated. Sharp and blunt dissections were used for this. All areas of the lung were decorticated. There was abundant amount of organized hemorrhage and fibrin in the pleural space and this was peeled from visceral and parietal pleura. When the full decortication was complete, the chest was irrigated with copious amounts of saline and then hemostasis was ascertained. Four chest tubes were placed to drain the anterior, lateral, posterior, and inferior pleural surfaces. The chest was then closed in the usual fashion. The patient was taken to the recovery area in good condition having tolerated the procedure well. All counts reported as correct. <ELECTRONICALLY SIGNED> By: Gibson Maher MD 12/24/20 1109 [id number] [id number] Gibson Maher MD /nt
== END 2020-12-22 17:06 | DRG 163 ==
LOC: ICU 15:35 → 2N 15:35 → ICU 12-14 11:15 → 2N 12-18 14:46
PROVIDERS: Internal Medicine; Internal Medicine Cardiovascular Disease; Nurse Practitioner; Physician Assistant; Surgery Vascular Surgery; ADMIT Hospitalist; ATTEND Hospitalist
PROC: 0BNK4ZZ Release Right Lung, Percutaneous Endoscopic Approach (ICD-10-PCS; principal; 2020-12-14)
PROC: 0W9940Z Drainage of Right Pleural Cavity with Drainage Device, Percutaneous Endoscopic Approach (ICD-10-PCS; principal; 2020-12-14)
PROC: 30233N1 Transfusion of Nonautologous Red Blood Cells into Peripheral Vein, Percutaneous Approach (ICD-10-PCS; 2020-12-15)
PROC: 5A09357 Assistance with Respiratory Ventilation, Less than 24 Consecutive Hours, Continuous Positive Airway Pressure (ICD-10-PCS; 2020-12-20)
DX: J86.9 Pyothorax without fistula (principal); J18.9 Pneumonia, unspecified organism; I21.4 Non-ST elevation (NSTEMI) myocardial infarction; J96.21 Acute and chronic respiratory failure with hypoxia; J96.22 Acute and chronic respiratory failure with hypercapnia; J94.2 Hemothorax; R78.81 Bacteremia; N17.9 Acute kidney failure, unspecified; J44.0 Chronic obstructive pulmonary disease with (acute) lower respiratory infection; J91.8 Pleural effusion in other conditions classified elsewhere; I13.0 Hypertensive heart and chronic kidney disease with heart failure and stage 1 through stage 4 chronic kidney disease, or unspecified chronic kidney disease; D62 Acute posthemorrhagic anemia; E78.5 Hyperlipidemia, unspecified; E11.42 Type 2 diabetes mellitus with diabetic polyneuropathy; G89.29 Other chronic pain; M54.9 Dorsalgia, unspecified; E83.42 Hypomagnesemia; E66.01 Morbid (severe) obesity due to excess calories; I25.10 Atherosclerotic heart disease of native coronary artery without angina pectoris; N18.9 Chronic kidney disease, unspecified; E11.22 Type 2 diabetes mellitus with diabetic chronic kidney disease; I25.5 Ischemic cardiomyopathy; G47.33 Obstructive sleep apnea (adult) (pediatric); I95.9 Hypotension, unspecified; Z95.5 Presence of coronary angioplasty implant and graft; Z68.34 Body mass index [BMI] 34.0-34.9, adult; Z90.49 Acquired absence of other specified parts of digestive tract; Z82.49 Family history of ischemic heart disease and other diseases of the circulatory system; Z99.81 Dependence on supplemental oxygen; Z20.822 Contact with and (suspected) exposure to COVID-19
CPT/HCPCS: 10078; 10081; 47405; 50010; 50101; 50417; 50455; 50497; 51301; 52265; 54118; 56524; 56525; 56526; 56527; 56528; 62110; 62900; 65020; 65040; 65105; 65135; 70005; 85076

== ENCOUNTER 2020-12-22 14:50 | Inpatient (IN) | payer OTHER ==
[~2020-12-22] VITALS: Ht 152.4 cm; Wt 100.9 kg
--- NOTE | ~2020-12-22 | H ---
[facility] [place] [address] [place] [address] HISTORY AND PHYSICAL Name: XU ARRIETA Room #: 501-A ADM IN M.R.#: [id number] Admission: 12/22/20 Attend Phys: Mesfin Sweet MD Discharge: Date of : 62 Report #: [id number] THIS REPORT FOR: cc: Dwight Romero MD,Dwight Sweet,Mesfin Morales MD ~ DATE OF SERVICE: 12/22/2020 HISTORY AND PHYSICAL ADDENDUM/OVERALL PLAN OF CARE HISTORY OF PRESENT ILLNESS: Please see the full documentation. Agree with the history and physical as noted. The patient was originally admitted to [facility] in 12/13/2020 with right-sided chest, complicated pneumonia with loculated effusion, transferred from [place] where she had been admitted since 12/08/2020. She underwent bronchoscopy with a VATS and right thoracotomy with decortication on 12/14/[address] Maher. Her chest tube and Chin have been removed. She is on nasal cannula O2, has been anemic, received 2 units of blood since surgery. Cardiology has been following as well as ID with noted previous MRSA bacteremia, on IV antibiotics. She has acute renal insufficiency superimposed on chronic kidney disease. She has been monitored regarding continued pleural effusion on the right. She has been admitted now for acute in-hospital inpatient rehabilitation. PAST MEDICAL HISTORY: As noted. Please see the social history, allergies. HABITS: Noted to be a 2-pack per day smoker. Quit less than or equal to a year ago. MEDICATIONS: Please see the full medication listing. REVIEW OF SYSTEMS: A 14-point system is noted. No chest pain, current shortness of breath, or abdominal discomfort. She does have concern regarding lower extremity edema and is on a diuretic. PHYSICAL EXAMINATION: GENERAL: A 60-year-old white female in no obvious distress. Awake, alert, appropriate. She is on nasal prong O2, 3 liters. Facies are symmetric. Follows basic commands without difficulty. CHEST: Some decreased breath sounds, diminished at the bases. CARDIOVASCULAR: Regular rate and rhythm. ABDOMEN: Obese, bowel sounds positive, nontender. GENITOURINARY AND RECTAL: Deferred. Chest wall incision is noted to have surgery glue. EXTREMITIES: She has functional range of motion of the upper extremities with strength grade 3+/5. Lower extremities: She has 2+ pedal edema. [facility] [address] [place] [address] HISTORY AND PHYSICAL Name: XU ARRIETA Room #: 501-A [facility] IN [facility]#: [id number] Admission: 12/22/20 Attend Phys: Mesfin Sweet MD Discharge: Date of : 62 Report #: [id number] negative. Lower extremity strength is probably a grade 4-/5. Transfers are contact guard. She is ambulating 15 feet contact guard without a device. In occupational therapy, lower body dressing is min assist, upper body is being further assessed. ASSESSMENT: A 60-year-old white female with the following problem list: 1. Right-sided chest, complicated pneumonia with loculated effusion, status post bronchoscopy with VATS and a right thoracotomy with decortication on 12/14/2020. 2. Cardiac and pulmonary debilitation. 3. Previous methicillin-resistant Staphylococcus aureus bacteremia. 4. Acute anemia, status post transfusion. 5. Hypertension with hypotension. 6. Acute renal insufficiency superimposed on chronic kidney disease. 7. Recent non-ST elevation myocardial infarction with history of cardiac stenting x 9. 8. Diabetes mellitus type 2 with peripheral neuropathy. 9. Chronic back pain. 10. Ischemic cardiomyopathy. 11. Hyperlipidemia. 12. Bilateral lower extremity distal edema. 13. Prior history of tobacco abuse. PLAN: The patient has been admitted for acute in-hospital inpatient rehabilitation. She will be involved with the interdisciplinary acute inpatient rehabilitation program to maximize her functional independence, so she can hopefully return back to the prior living situation. We will have the multiple media consultant outside sales physicians continue to follow while she is on the acute inpatient rehab wallis. Discussion with the patient's who is here visiting. Prognosis is reasonably good. The patient's diagnosis is appropriate. She meets the medical necessity criteria and we will have the media consultant outside sales physicians continue to follow. She does have the tolerance for therapies and has appropriate discharge goals back to the home setting. Overall plan of care is based on the preadmission screen and information garnered from therapy assessments. 1. Estimated length of stay is probably at least 10-14 days. 2. Medical prognosis is reasonably good. 3. Anticipated interventions includes the interdisciplinary acute inpatient rehabilitation program. 4. Anticipated functional outcomes would be for the patient to become modified independent with transfers, mobility and ADLs with improvement in strength and endurance. We will also be working on cognitive issues to maximize her functional cognition. [facility] [address] [place] [address] HISTORY AND PHYSICAL Name: XU ARRIETA Room #: 501-A [facility] IN M.R.#: [id number] Admission: 12/22/20 Attend Phys: Mesfin Sweet MD Discharge: Date of : 62 Report #: [id number] 5. Discharge destination would be back to the home setting with her . 6. Expected therapy by discipline includes PT, OT and speech 1 hour per day each five days a week throughout the duration of the acute inpatient rehabilitation stay. The patient's prognosis for significant practical improvement within a reasonable period of time appears good. Given the patient's complex medical condition and risk of further medical complication, rehabilitation services could not be safely provided at a lower level of care such as a nursing home facility. ADDENDUM: The patient's prognosis for significant practical improvement within a reasonable period of time appears good. Given the patient's complex medical condition and risk of further medical complications, rehabilitation services could not be safely provided at a lower level of care such as a nursing home facility. By: [id number] Mesfin Sweet MD /nt
[~2020-12-22 14:50] MED LIST changes: +COZAAR 25 MG TA25 M2 PO; +LANTUS SUBQ; +LASIX 40 MG TAB40 M1 PO; +LIDOPATCH1 EACH TRANSDERM; +METOPROLOL SUCC50 MG PO; +SPIRONOLACTONE25 M1 PO; +VANCO1GM IV
[2020-12-22 17:33] VITALS: BP 112/58
[2020-12-22 19:41] VITALS: BP 114/52
--- NOTE | 2020-12-23 03:04 | NUR ---
ASSUMED PT CARE AT 1900.PT WAS OBSERVED SITTING UP IN THE RECLINER IN HER ROOM.PT ON 3L/NC.PT WAS VERY ANXIOUS AT START OF SHIFT BUT SHE REF TO TAKE HER ANXIETY MEDICATION AT THAT TIME.PT C/O PAIN ON HER BACK,SKYDIVING INSTRUCTOR ON DUTY NOTIFIED ORDER NOTED AND CARRIED OUT.PT NOT ABLE TO SLEEP IN HER ROOM,PT REQUESTED FOR SLEEPING MED,SKYDIVING INSTRUCTOR ON DUTY NOTIFIED,ORDER NOTED AND CARRIED OUT.PT WITH INCREASED ANXIETY WHILE SHE WAS SITTING ON HER BED,PT WAS EDUCATED AND ENCOURAGED TO TAKE HER ANXIETY MED WHICH SHE LATER AGREED TO TAKE.INCISION ON HER BACK INTACT,OPEN TO AIR.BLE EDEMA NOTED.PT REF FEET TO BE ELEVATED,STATED THAT IT HURTS HER BACK.PT REF TO SLEEP WITH CPAP AT THIS TIME.PT RESTING ON HER BED AT THIS TIME.FREQUENT MONITORING MAINTAINED.CALL LIGHT WITHIN REACH.
[2020-12-23 05:52] LABS: HEMATOCRIT 24.2 % (37.0-47.0); HEMOGLOBIN 7.6 gm/dL (12.0-15.0); MCH 26.8 pg (26.0-34.0); MCHC 31.2 g/dL (28.0-37.0); MCV 85.8 fL (80.0-100.0); RBC 2.83 mil/uL (4.20-5.00); RDW 21.7 % (10.5-14.5); WBC 7.8 thou/uL (4.0-11.0)
[2020-12-23 06:05] LABS: CALCIUM 8.9 mg/dL (8.5-10.1); CREATININE 1.2 mg/dL (0.6-1.0); POTASSIUM 3.7 mmol/L (3.5-5.1)
[2020-12-23 07:15] VITALS: BP 110/53
--- NOTE | 2020-12-23 12:27 | NUR ---
ASSUMED PT CARE THIS AM. PT VSS, A&OX3. PT ON 3 LITERS O2 NC. PT COMPLAINING OF SHORTNESS OF BREATH TO NURSE AND NURSE PRACTITIONER, OXYGEN SATURATION CHECKED AND PATIENT WAS SATURATING AT 95% ON 3L, NO CHANGES MADE TO OXYGEN. INSTRUCTED PATIENT TO TAKE DEEP BREATHS THROUGH NOSE. REPORTED BACK PAIN OF 5, HAS NOT WANTED PAIN MEDICATION OF YET. PT VISIBLY ANXIOUS, GIVEN XANAX ORDERED ON EMAR. BILATERAL LOWER EXTREMETY EDEMA NOTED, PT ENCOURAGED TO ELEVATE FEET WHEN IN CHAIR AND BED. PT AMBULATORY TO THE BEDSIDE COMMODE WITH ASSIST. INCISION ON RIGHT BACK IS DRY AND INTACT. PT WITH A PICC TO [facility]. HAD A BOWEL MOVEMENT TODAY. TOOK MEDS WITHOUT ISSUE THIS MORNING. FALL PRECAUTIONS ARE IN PLACE. FAMILY MEMBER AT BEDSIDE. PATIENT ABLE TO MAKE NEEDS KNOWN TO STAFF.
[2020-12-23 12:42] LABS: FOLIC ACID 30.5 ng/mL (8.6-58.9)
--- NOTE | 2020-12-23 14:05 | NUR ---
chart review. cm tried to visit with maryanne, unable to rt SOA. cm spoke with her , intro to cm, team meeting and dcp. noted she came from [facility] for procedure/surgery. prior to hospitals, live with her and son, independent when feeling ok. no hh or rehab before. has home o2 at night. " she so swollen she having short of breath"/vipul. cm passed on information to bedside nurse. will cont following as needed for dc needs.
[2020-12-23 19:15] VITALS: BP 115/60
[2020-12-24 01:06] LABS: GLYCOHEMOGLOBIN (HGB A1C) 6.1 % (4.8-5.6)
--- NOTE | 2020-12-24 02:53 | NUR ---
assumed care approx 1900 evening 12/23. pt sitting up in recliner at change of shift receiving resp tx. pt alert and oriented x4, somewhat anxious at times. pt given hs meds with pudding tolerating well. pt up to bsc to void. 02 at 3L per n/c with pt wearing cpap for very short time tonight stating she could not tolerate it well. continuous pulse oximeter on when cpap on. 02 sats WNL. pt dozing off and on stating she is not able to lie down to sleep and sleeping sitting up in bed. bed alarm on and call light in reach. will continue to monitor.
[2020-12-24 04:48] LABS: ABSOLUTE NEUTROPHILS 7.2 thou/uL (1.4-8.2); BASOPHILS 0.6 % (0.0-2.0); EOSINOPHILS 0.4 % (0.0-3.0); HEMATOCRIT 23.5 % (37.0-47.0); HEMOGLOBIN 7.4 gm/dL (12.0-15.0); LYMPHOCYTES 7.3 % (24.0-44.0); MCH 27.3 pg (26.0-34.0); MCHC 31.6 g/dL (28.0-37.0); MCV 86.4 fL (80.0-100.0); MONOCYTES 5.3 % (1.0-8.0); PLATELET COUNT 295 thou/uL (150-400); POLYS 86.4 % (36.0-66.0); RBC 2.72 mil/uL (4.20-5.00); RDW 21.5 % (10.5-14.5); WBC 8.4 thou/uL (4.0-11.0)
[2020-12-24 05:06] LABS: CALCIUM 8.9 mg/dL (8.5-10.1); CREATININE 1.3 mg/dL (0.6-1.0); POTASSIUM 3.9 mmol/L (3.5-5.1)
[2020-12-24 07:15] VITALS: BP 116/57
--- NOTE | 2020-12-24 09:54 | NUR ---
ASSUMED CARE AT 0700. PATIENT IS ALERT AND ORIENTED X3, BUT FORGETFUL. PATIENT ZHANG'S, KNEE BOLTER ARE EQUAL. LUNGS ARE COARSE AND DEMINISHED. PATIENT IS ON 02 AT 2L PER N/C. PATIENT CONTINUES ON CPAP AT [facility]. ABD IS SOFT WITH BSX4. PATIENT REFUSED MIRALAX. PATIENT IS UP WTH ASSIST OF 1 STAFF AND GAIT BELT TO CHAIR. FALL AND SAFETY PROTOCOLS IN PLACE. C/O BACK PAIN, LEG AND FOOT PAIN. MEDICATED WITH OXY/TYLENOL ORDERED PRN. CONTINUES TO PROGRESS SLOWLY TOWARDS D/C GOALS. PATIENT HAS RIGHT UPPER ARM IV. DR. GILLILAND HERE TO VISIT. WILL CONTINUE TO MONITER.
[2020-12-24 19:32] VITALS: BP 105/57
--- NOTE | 2020-12-24 22:03 | NUR ---
PT ALERT AND ORIENTED X 4. UP IN RECLINER ALL EVENING. RIGHT PICC LINE INTACT AND PATENT. 02 ON AT 3L PER NC CONT. PT C/O PAIN IN HER BACK. OXYCODONE GIVEN ORDERED. BLOOD SUGAR 172 AT HS. INSULIN GIVEN ORDERED. PT TOOK HS MEDS WITH WATER WITHOUT DIFFICULTY. PT CHECKED ON HOURLY ROUNDS.
[2020-12-24 23:44] VITALS: BP 96/56
--- NOTE | 2020-12-25 04:04 | NUR ---
PT SITTING IN RECLINER. TRANSFERRING TO BEDSIDE COMMODE WITH ASSIST X1. PERCOCET PROVIDING PAIN RELIEF. FREQUENT OBSERVATION.
[2020-12-25 05:04] VITALS: BP 82/65
[2020-12-25 06:08] LABS: CALCIUM 8.6 mg/dL (8.5-10.1); CREATININE 1.7 mg/dL (0.6-1.0); POTASSIUM 3.8 mmol/L (3.5-5.1)
[2020-12-25 07:15] LABS: HEMATOCRIT 21.4 % (37.0-47.0)
[2020-12-25 07:16] LABS: HEMOGLOBIN 6.7 gm/dL (12.0-15.0); MCH 27.3 pg (26.0-34.0); MCHC 31.5 g/dL (28.0-37.0); MCV 86.9 fL (80.0-100.0); RBC 2.47 mil/uL (4.20-5.00); RDW 21.3 % (10.5-14.5); WBC 7.2 thou/uL (4.0-11.0)
[2020-12-25 07:35] VITALS: BP 99/49
[2020-12-25 09:29] VITALS: BP 99/49
[2020-12-25] MEDS ORDERED: FUROSEMIDE20 MG/2 ML IV PUSH (13:26)
[2020-12-25] MEDS ORDERED: COLACE 100 MG100 MG PO (13:26)
[2020-12-25] MEDS ORDERED: NYSTATIN100000 UNI PO (13:26)
[2020-12-25] MEDS ORDERED: LANTUS SUBQ (13:26)
[2020-12-25] MEDS ORDERED: MIRALAX17 GM PO (13:26)
[2020-12-25] MEDS ORDERED: LIPITOR40 MG PO (13:26)
[2020-12-25] MEDS ORDERED: PROTONIX 20 MG20 M1 PO (13:26)
[2020-12-25] MEDS ORDERED: ALBUTEROL2.5 MG/31 INH (13:26)
[2020-12-25] MEDS ORDERED: PULMICORT0.5 MG/21 INH (13:26)
[2020-12-25] MEDS ORDERED: HUMALOG100 UNIT/1 SUBQ (13:26)
== END 2020-12-25 14:42 | disposition admitted as inpatient to this hospital (09) | DRG 947 ==
PROVIDERS: Hospitalist; Nurse Practitioner Family; Specialist; ADMIT Physical Medicine & Rehabilitation; ATTEND Physical Medicine & Rehabilitation
PROC: 5A09357 Assistance with Respiratory Ventilation, Less than 24 Consecutive Hours, Continuous Positive Airway Pressure (ICD-10-PCS; principal; 2020-12-23)
PROC: 5A09357 Assistance with Respiratory Ventilation, Less than 24 Consecutive Hours, Continuous Positive Airway Pressure (ICD-10-PCS; 2020-12-24)
PROC: 5A09357 Assistance with Respiratory Ventilation, Less than 24 Consecutive Hours, Continuous Positive Airway Pressure (ICD-10-PCS; 2020-12-25)
DX: R53.81 Other malaise (principal); J18.9 Pneumonia, unspecified organism; I21.4 Non-ST elevation (NSTEMI) myocardial infarction; J86.9 Pyothorax without fistula; A41.02 Sepsis due to Methicillin resistant Staphylococcus aureus; I13.0 Hypertensive heart and chronic kidney disease with heart failure and stage 1 through stage 4 chronic kidney disease, or unspecified chronic kidney disease; N17.9 Acute kidney failure, unspecified; E44.0 Moderate protein-calorie malnutrition; Z68.41 Body mass index [BMI] 40.0-44.9, adult; N18.9 Chronic kidney disease, unspecified; F17.210 Nicotine dependence, cigarettes, uncomplicated; D64.9 Anemia, unspecified; E11.42 Type 2 diabetes mellitus with diabetic polyneuropathy; G89.29 Other chronic pain; E78.5 Hyperlipidemia, unspecified; E11.22 Type 2 diabetes mellitus with diabetic chronic kidney disease; I95.9 Hypotension, unspecified; I25.10 Atherosclerotic heart disease of native coronary artery without angina pectoris; G47.33 Obstructive sleep apnea (adult) (pediatric); Z86.14 Personal history of Methicillin resistant Staphylococcus aureus infection; Z95.5 Presence of coronary angioplasty implant and graft; R06.02 Shortness of breath
CPT/HCPCS: 10112

== ENCOUNTER 2020-12-25 11:46 | Inpatient (IN) | payer OTHER ==
[~2020-12-25] VITALS: Ht 165.1 cm; Wt 96.4 kg
[2020-12-25] MEDS ORDERED: MIRALAX17 GM PO (13:26)
[2020-12-25] MEDS ORDERED: LANTUS SUBQ (13:26)
[2020-12-25] MEDS ORDERED: HUMALOG100 UNIT/1 SUBQ (13:26)
[2020-12-25] MEDS ORDERED: PULMICORT0.5 MG/21 INH (13:26)
[2020-12-25] MEDS ORDERED: NYSTATIN100000 UNI PO (13:26)
[2020-12-25] MEDS ORDERED: COLACE 100 MG100 MG PO (13:26)
[2020-12-25] MEDS ORDERED: ALBUTEROL2.5 MG/31 INH (13:26)
[2020-12-25] MEDS ORDERED: LIPITOR40 MG PO (13:26)
[2020-12-25] MEDS ORDERED: PROTONIX 20 MG20 M1 PO (13:26)
[2020-12-25] MEDS ORDERED: FUROSEMIDE20 MG/2 ML IV PUSH (13:26)
--- NOTE | 2020-12-25 16:38 | NUR ---
PT DIRECT ADMISSION FROM DUE TO INCREASED SWELLING AND SOB. PT ADMITTED FOR CHF. PT AND HAVE SEVERAL CONCERNS REGARDING THE CARE THEY GOT UPSTAIRS AND ARE NOT HAPPY ABOUT IT. DR NOTIFIED OF PTS CONCERNS AND PT UPDATED ON PLAN OF CARE. PT IS GOING TO GET ONE UNIT OF PRBC DUE TO LOW HGB AND CARDIO AND PULM ARE CONSULTED AND ON BOARD. PT IS AWARE OF WHAT IS GOING ON AT THIS TIME AND HAS NO FURTHER QUESTIONS OR CONCERNS. CALL LIGHT IN REACH AND REFRESHMENTS PROVIDED.
[2020-12-25 17:00] VITALS: BP 110/67
[2020-12-25 20:15] VITALS: BP 111/61
[2020-12-25 23:05] VITALS: BP 122/75; BP 125/66; BP 128/58; BP 129/60
[2020-12-26] VITALS (8 sets, daily range): BP systolic 107–140; BP diastolic 54–77
[2020-12-26 04:05] LABS: CALCIUM 8.9 mg/dL (8.5-10.1); CREATININE 1.6 mg/dL (0.6-1.0); POTASSIUM 3.7 mmol/L (3.5-5.1)
--- NOTE | 2020-12-26 04:18 | NUR ---
ASSESSMENTS CHARTED, MEDS GIVEN CHARTED. PATIENT SITTING IN BED AT START OF SHIFT TRIPOD POSITION TRYING TO BREATH, VERY ANXIOUS, WAITING TO BE TRANSFUSED 1 UNIT OF PRBC. GOT ORDER FOR ONETIME LASIX ORDER PRIOR TO TRANSFUSION. TRANSFUSION WENT WELL WITH NO ADVERSE REACTIONS. PATIENT CONTINUED TO C/O BACK PAIN. PAIN MEDS WERE NOT TRANSFERED ON MED LIST FROM REHAB. SPOKE WITH RICPAPER CONE MAKER GOT PAIN MED RESTARTED. FALL PRECAUTIONS IN PLACE DURING SHIFT.
[2020-12-26 04:25] LABS: HEMATOCRIT 24.2 % (37.0-47.0); HEMOGLOBIN 7.7 gm/dL (12.0-15.0); MCHC 31.9 g/dL (28.0-37.0); MCV 87.7 fL (80.0-100.0); RBC 2.75 mil/uL (4.20-5.00); RDW 20.6 % (10.5-14.5); WBC 8.3 thou/uL (4.0-11.0)
--- NOTE | 2020-12-26 10:23 | NUR ---
Patient transferred from Acute Rehab [facility] to CCU for SOA. Patient initially transferred to [facility] from [facility] for CTS. Patient resides at home with /son. She has nocturnal oxygen recently ordered when discharged from [facility]. Patient retired. Met with patient and spouse. Spouse reports "we want to transfer to . She is not getting any better here." Spoke with Dr Sykes will proceed with transfer. Updated spouse
--- NOTE | 2020-12-26 14:11 | NUR ---
Spoke with Amira at transfer center. Faxed pertinent information and uploaded raddiology to cloud. Although patient requesting a second opinion they are unable to accept for lateral move. Updated patient and spouce. They request [facility]. sp with Hattie at [facility] and faxed pertinent information. Hattie reports although request second opinion they decline as lateral move and not have capability. Updated patient. She at this time planning to remain in hospital.
--- NOTE | 2020-12-26 17:43 | NUR ---
PT CARE ASSUMED AT 0700. ASSESSMENTS CHARTED. MEDICATIONS CHARTED. RAQUEL 3L PICC. SINUS TACHYCARDIA. BIPAP @ NOC. SAPP. RT THORACOTOMY SCAR. PT TO VIDEO SWALLOW; HH DIET, NO STRAWS. KIERSTENDO WARNING; PT IN TO [facility] UNTIL WARNING WAS OVER.
[2020-12-27] VITALS (8 sets, daily range): BP systolic 95–119; BP diastolic 53–63
[2020-12-27 05:52] LABS: HEMATOCRIT 24.1 % (37.0-47.0); HEMOGLOBIN 7.7 gm/dL (12.0-15.0); MCH 28.1 pg (26.0-34.0); RBC 2.74 mil/uL (4.20-5.00); WBC 7.9 thou/uL (4.0-11.0)
[2020-12-27 06:18] LABS: CALCIUM 9.2 mg/dL (8.5-10.1); CREATININE 1.6 mg/dL (0.6-1.0); POTASSIUM 3.9 mmol/L (3.5-5.1)
--- NOTE | 2020-12-27 08:06 | NUR ---
ASSUME CARE 1900. PT/VITALS STABLE. INTERMITTENT INCISIONAL/LOWER BACK PAIN. MODERATE TOLERANCE TO ACTIVITY. ASSESSMENT CHARTED. PROGRESSING SLOWLY WITH POC. PLAN IS TO CONTINUE DIURESING PT/BREATHING TREAMENTS AND MONITOR AND MANAGE RESPIRATORY FUNCTION. WILL CONTINUE TO MONITOR AND FOLLOW WITH POC
--- NOTE | 2020-12-27 15:42 | NUR ---
met with patient. She did not work with therapy today. Dr Cheney to see patient. She has concerns regarding progress of her improvement. She is concerned she is not getting better. Requested patient experience also visit with patient.
--- NOTE | 2020-12-27 18:51 | NUR ---
PT CARE ASSUMED AT 0700. ASSESSMENTS CHARTED. MEDICATIONS CHARTED. RAQUEL 3L PICC. SINUS TACHYCARDIA. ACHS. CPAP AT NOC. DR GILLILAND WOULD LIKE BLOOD DRAWS TO BE LATER AND TO LET PT REST AT NIGHT MUCH POSSIBLE.
[2020-12-28 04:45] VITALS: BP 117/77
--- NOTE | 2020-12-28 05:13 | NUR ---
ASSUME CARE 1900. PT/VITALS STABLE. INTERMITTENT BACK PAIN INDICATED. MODERATE TOLERANCE TO ACTIVITY. DYSPNEA NOTED AT REST AND WITH EXERTION. ASSESSMENT CHARTED. PROGRESSING WELL WITH POC. PLAN IS TO CONTINUE TO MONITOR AND MANAGE RESPIRATORY FUNCTION. ST ON MONITOR. NO DISTRESS NOTED THROUGH THE NIGHT. MODERATE REST. WILL CONTINUE TO MONITOR AND FOLLOW WITH POC
[2020-12-28 06:59] LABS: HEMATOCRIT 22.7 % (37.0-47.0); HEMOGLOBIN 7.3 gm/dL (12.0-15.0); MCH 28.3 pg (26.0-34.0); MCHC 32.2 g/dL (28.0-37.0); MCV 87.9 fL (80.0-100.0); RBC 2.58 mil/uL (4.20-5.00); RDW 21.1 % (10.5-14.5); WBC 8.3 thou/uL (4.0-11.0)
[2020-12-28 07:09] LABS: CALCIUM 8.8 mg/dL (8.5-10.1); CREATININE 1.4 mg/dL (0.6-1.0); POTASSIUM 3.8 mmol/L (3.5-5.1)
[2020-12-28 07:28] VITALS: BP 110/62
[2020-12-28 11:22] VITALS: BP 111/65
[2020-12-28 12:27] LABS: BE(vivo) 7.3 mmol/L (-2 to +3); HCO3 30.3 mmol/L (22.0-26.0); PCO2 36.2 mmHg (35.0-45.0); PO2 66.8 mmHg (80.0-100.0); sO2 95.3 % (92.0-98.0)
[2020-12-28 13:11] LABS: APTT 26.7 Seconds (24.5-32.8); INR 1.2; PROTIME 12.8 Seconds (9.3-11.4)
[2020-12-28 15:04] VITALS: BP 112/68
--- NOTE | 2020-12-28 17:06 | NUR ---
Discussed post acute care patient agreeable to 5N once stable.
[2020-12-28 17:26] LABS: SOURCE THORACENTESIS
[2020-12-28 17:27] LABS: CLARITY CLOUDY; COLOR AMBER; TOTAL VOLUME 55 mL
[2020-12-28 17:28] LABS: BF NUCLEATED CELLS 277 /mm3; BF RBC 12375 /mm3
[2020-12-28 17:29] LABS: BF MACROPHAGE 24 %; BF NEUTROPHILS 25 %
--- NOTE | 2020-12-28 18:06 | NUR ---
RECEIVED PT'S CARE AROUND 0735; PT. ON CHAIR; ALERT; ST ON THE MONITOR; DURING AM ASSESSMENT PT. AOX4; NO C/O PAIN; RESTLESS; AM MEDICATIONS GIVEN; EDUCATED ABOUT THE IMPORTANCE OF EATING MEALS THROUGH THE DAY; ST. UNDERSTANDING; REFUSED BREAKFAST AND LUNCH; PER DR. ZACARIAS ASSESSED IF PT'S TSH ON LABS; NO NOTICED; ORDERED; DURING THE AFTERNOON RECEIVED CALL FROM DR. ZACARIAS ST. NEW LABS AND THORACENTESIS HAD BEING ADD TO PT'S ORDERS; PT. NOTIFIED; UPSET; EDUCATED ABOUT PROCEDURE MIGHT HELP TO DECREASE SOB; ST. UNDERSTANDING; AGREED TO PROCEDURE; US CONTACTED; LABS SENT; CALL US WITH RESULTS; RESTLESS; PRN MEDICATION GIVEN; PT. GONE FOR PROCEDURE DURING THE AFTERNOON; BACK FROM PROCEDURE; C/O PAIN; PRN PAIN MEDICATION GIVEN; PT. ST. PAIN OVER L. SIDE "WHERE THEY PUT THE NEEDLE"; REASSESSMENT PT. SLEEPING; RECEIVED CALL DURING THE AFTERNOON FROM "CHRISTI"; NO INFORMATION FOUND IN THE SYSTEM; PT. ON OTHER PT. ROOM; EXPLAINED IT TO NIECE; NIECE REQUESTED TO ASK PT. TO PUT IN THE LIST; UNEMPLOYMENT INSPECTOR EXPLAINED NIECE DUE TO TAKING CARE OF ANOTHER PT. NOT ABLE TO COMFIRM INFORMATIO; NIECE ST. "I AM GOING OVER YOUR HEAD IF YOU DO NOT ADD ME TO THE LIST"; UNEMPLOYMENT INSPECTOR EXPLAINED AGAIN DUE TO GIVING MEDICATION NOT ABLE TO COMFIRM INFORMATION; ST. UNDERSTANDING; LATER COMFIRM WITH PT. OK FOR NIECE TO BE IN THE LIST TO GIVE INFORMATION; PT'S ST. "WE ADD HER TO THE LIST"; SHOWED INFORMATION UNDER PT. RECORDS; EDUCATED ABOUT INFORMATION CAN BE ADD LATER AFTER GIVING MEDICATION AND GETTING BLOOD; NO ANSWER BACK; BLOOD SENT; AROUND 1820 PT'S REQUESTED TO TALK WITH CHARGE NURSE; UNEMPLOYMENT INSPECTOR CHARGE NURSE; ST. "AND YOU DO NOT WANT TO GIVE TO MY NIECE INFORMATION"; EDUCATED ONE MORE TIME INFORMATION NEEDED IN ORDER TO PUT IN THE SYSTEM; ST. "ON WHAT DO YOU WANT THE INFORMATION ON A PIECE OF PAPER" WHILE POINTING AT THE STICKY NOTES; PAPER AND PENCIL PROVIDED; INFORMATION OBTAINED; WILL CALL ADMITTING AND GIVE INFORMATION; ASSESSMENT CHARGED; FOLLOWING POC; PT. ABLE TO BREATH EASILY AFTER THORACENTESIS; WILL PASS ON REPORT;
[2020-12-28 20:20] VITALS: BP 115/63
--- NOTE | 2020-12-29 04:10 | NUR ---
SLEPT PART OF SHIFT. WITH SHORTNESS OF AIR AND RT HERE FOR TREATMENT. PATIENT HAD REFUSED TREATMENT AT BEDTIME AND DID NOT WANT RT TO WAKE HER DURING NOC. ALSO REFUSED NOC DESAT STUDY THIS SHIFT STATING WOULD DO TOMORROW NOC. WORKING ON GOALS AND PLAN OF CARE FOR NOC. PROGRESSING SLOWLY TOWARDS DC GOALS. CONTINUE TO ASSES.
[2020-12-29 05:27] VITALS: BP 115/75
[2020-12-29 06:43] LABS: HEMATOCRIT 23.6 % (37.0-47.0); HEMOGLOBIN 7.7 gm/dL (12.0-15.0); MCH 28.7 pg (26.0-34.0); MCHC 32.7 g/dL (28.0-37.0); MCV 87.8 fL (80.0-100.0); RBC 2.69 mil/uL (4.20-5.00); RDW 21.4 % (10.5-14.5); WBC 9.7 thou/uL (4.0-11.0)
[2020-12-29 06:52] LABS: CALCIUM 9.1 mg/dL (8.5-10.1); CREATININE 1.8 mg/dL (0.6-1.0); POTASSIUM 4.3 mmol/L (3.5-5.1)
--- NOTE | 2020-12-29 07:15 | EKG ---
[address] [address] ELECTROCARDIOGRAM REPORT Name: XU ARRIETA Room #: 208- ADM IN M.R.#: [id number] Admission: 12/25/20 Attend Phys: Gómez Sykes MD Discharge: Date of : 62 Report #: [id number] [facility] Test Date: 2020-12-28 Test Time: 12:09:11 Pat Name: XU ARRIETA Department: Room: 208 P Gender: F Charge Weigher: CYNDI : 1960 Requested By: Alonso Sierra Order Number: [id number] MD: George Corral Measurements Intervals [place] Rate: 120 P: 0 MS: 155 QRS: 5 QRSD: 106 T: QT: 296 QTc: 419 Interpretive Statements Sinus tachycardia Anteroseptal infarct, old Borderline repolarization abnormality Compared to ECG 12/19/2020 09:35:58 No significant changes Electronically Signed On 12-29-2020 7:15:40 CDT by George Corral [email or web address] <ELECTRONICALLY SIGNED> By: George Corral MD, [facility] 12/29/20 0715 1209 1209 George Corral MD, FACC /EPI
--- NOTE | 2020-12-29 07:17 | EKG ---
[address] [address] ELECTROCARDIOGRAM REPORT Name: XU ARRIETA Room #: 208- ADM IN M.R.#: [id number] Admission: 12/25/20 Attend Phys: Gómez Sykes MD Discharge: Date of : 62 Report #: [id number] [facility] Test Date: 2020-12-28 Test Time: 17:29:22 Pat Name: XU ARRIETA Department: Room: 208 P Gender: F Jack Spinner: CYNDI : 1960 Requested By: Alonso Sierra Order Number: [id number] MD: George Corral Measurements Intervals [place] Rate: 109 P: 80 NE: 100 QRS: -4 QRSD: 112 T: 252 QT: 333 QTc: 449 Interpretive Statements Sinus tachycardia Probable left atrial enlargement Consider anterior infarct Borderline repolarization abnormality Compared to ECG 12/28/2020 12:09:11 No significant changes Electronically Signed On 12-29-2020 7:17:39 CDT by George Corral [email or web address] <ELECTRONICALLY SIGNED> By: George Corral MD, [facility] 12/29/20 07 1729 28 George Corral MD, [facility] /EPI
[2020-12-29 07:39] VITALS: BP 109/60
[2020-12-29 11:07] LABS: BODY FLUID ALBUMIN 0.8 g/dL (Not Estab.); BODY FLUID AMYLASE 36 U/L (()); BODY FLUID GLUCOSE 193 mg/dL (()); BODY FLUID LDH 62 IU/L (()); BODY FLUID PROTEIN 1.8 g/dL (())
[2020-12-29 11:22] VITALS: BP 116/57
[2020-12-29 15:09] VITALS: BP 103/66
--- NOTE | 2020-12-29 15:09 | NUR ---
DC planning visit with pt. She notes that she has talked with our rehab inpatient auditor and would prefer going to acute rehab at [facility] vs [facility]N when medically stable. This would be closer to home for her and easier for spouse to visit. Referral called to [facility] their admissions liason. She will review the case and their bed availability. DC anticipated early next week and pt will need ins auth for readmission to acute rehab. Pt's goal is to return home as indep as possible with her family. Will follow.
[2020-12-29 19:25] VITALS: BP 102/64
[2020-12-30 04:24] VITALS: BP 131/79
[2020-12-30 05:16] LABS: HEMOGLOBIN 7.5 gm/dL (12.0-15.0); MCHC 31.4 g/dL (28.0-37.0); MCV 89.3 fL (80.0-100.0); RBC 2.69 mil/uL (4.20-5.00); RDW 22.1 % (10.5-14.5); WBC 13.6 thou/uL (4.0-11.0)
[2020-12-30 05:33] LABS: CALCIUM 9.6 mg/dL (8.5-10.1); CREATININE 2.1 mg/dL (0.6-1.0); POTASSIUM 4.4 mmol/L (3.5-5.1)
--- NOTE | 2020-12-30 07:55 | NUR ---
DID NOT TOLERATE SLEEP STUDY LAST NOC. PATIENT STATES IT MAKES HER SO NERVOUS AND EVERY TIME SHE STARTS TO FALL ASLEEP SHE THINKS THE O2 SAT PROBE ON FINGER IS A CIGERETTE AND SHE FEELS SHE IS GOING TO START A FIRE. WORKING ON GOALS AND PLAN OF CARE FOR NOC. DENIES NEED FOR PAIN MEDICATION. ANXIETY MEDS LOWERED YESTERDAY AND PATIENT STATES THE DOSE IS NOT HELPING. REPORT GIVEN TO AM NURSE. NOT PROGRESSING AT THIS TIME TOWARDS DISCHARGE GOALS. CONTINUE TO ASSES CLOSELY.
[2020-12-30 08:08] VITALS: BP 112/61
[2020-12-30 10:07] LABS: ANA INTERPRETATION Negative (Negative)
[2020-12-30 12:40] VITALS: BP 105/65
--- NOTE | 2020-12-30 15:23 | NUR ---
[facility] acute rehab can accept the pt saturday and have submitted for ins auth. They will need updated theray notes saturday am from the weekend. Therapy aware and pt on the schedule. Pt had rough night d/t attempted sleep study. Care team udpated.
[2020-12-30 16:00] VITALS: BP 108/55
--- NOTE | 2020-12-30 16:06 | PATH ---
[facility] [address] [place] [address] PATHOLOGY RPT PROCEDURE Name: XU ARRIETA Room #: 208-P ADM IN M.R.#: [id number] Admission: 12/25/20 Date of : 62 Discharge: Report #: [id number] Path Case #: [id number] Note [facility] Accession Number: [id number] TESTS RESULT FLAG UNITS REF RANGE LAB Clinician Provided Cytology Information No. of containers..01 Other (Miscellaneous) Source: PLEURAL FLUID DIAGNOSIS: 02 PLEURAL FLUID NEGATIVE FOR MALIGNANT EPITHELIAL CELLS. REACTIVE MESOTHELIAL CELLS ARE PRESENT. THIS INTERPRETATION INCLUDES EVALUATION OF A CELL BLOCK. MILD ACUTE AND CHRONIC INFLAMMATION. Pathologist ICD10: 02 J90 Signed out by: 02 Alisha Casas MD, Pathologist NPI- [id number] Performed by: 01 Maira Hook, Parts Inspector ([facility]) Gross description: 01 15ML, CLDY ORNG-RED, 1 TP 1CB /LCS 12/29/2020 1655 Local FLAG LEGEND: L-Low Normal,H-High Normal,LL-Alert Low,HH-Alert High <-Panic Low,>-Panic High,A-Abnormal,AA-Critical Abnormal Performed at: [address] [place] [address] Scottie Avila MD, [address] [address] Alisha Casas MD, Specimen Comment: A courtesy copy of this report has been sent to [phone], [phone] Specimen Comment: [phone], Specimen Comment: Report sent to ,DR GILLILAND / DR WATSON Specimen Comment: A duplicate report has been generated due to demographic updates. Performed at: [address], [place], [place] [id number] [address] [address] PATHOLOGY RPT PROCEDURE Name: XU ARRIETA Room #: 208-P [facility] IN M.R.#: [id number] Admission: 12/25/20 Date of : 62 Discharge: Report #: [id number] Path Case #: [id number] IN Scottie Avila IN Phone: [phone]
--- NOTE | 2020-12-30 18:30 | NUR ---
ASSUMED CARE SHIFT CHANGE. ASSESSMENTS CHARTED.MEDS GIVEN. VSS. O2 WNL 3L. SOB WITH ACTIVITY. PT C/O NO SLEEP, ENCOURAGED TO REST TODAY, SPOUSE AT BEDSIDE. LASIX GIVEN PER ORDERS PT DIURESING APPROPRIATELY. PLAN FOR PT TO [facility] ONCE STABLE PT HAS BEEN ACCEPTED ALREADY. PT CURRENTLY SITTING UP IN CHAIR RESTING. CONTINUING POC. WILL PASS ON REPORT TO TERESA BRITTON.
[2020-12-30 19:45] VITALS: BP 103/52
[2020-12-31] VITALS (8 sets, daily range): BP systolic 103–121; BP diastolic 58–69
--- NOTE | 2020-12-31 04:47 | NUR ---
PATIENT ALERT,DROWSY.PREFERS TO SLEEP ON THE RECLINER BUT LATER USE THE BED.O2 3L NC.BREATHING TREATMENT GIVEN THIS MORNING.MONITOR SHOWS SR.POC CONTINUED.
[2020-12-31 06:47] LABS: SOURCE THORACENTESIS
[2020-12-31 07:40] LABS: HEMATOCRIT 26.8 % (37.0-47.0); HEMOGLOBIN 8.3 gm/dL (12.0-15.0); MCH 27.8 pg (26.0-34.0); MCV 89.7 fL (80.0-100.0); RBC 2.99 mil/uL (4.20-5.00); RDW 23.3 % (10.5-14.5); WBC 13.4 thou/uL (4.0-11.0)
[2020-12-31 07:48] LABS: CALCIUM 9.4 mg/dL (8.5-10.1); CREATININE 2.4 mg/dL (0.6-1.0); POTASSIUM 4.3 mmol/L (3.5-5.1)
--- NOTE | 2020-12-31 19:54 | NUR ---
PT CARE ASSUMED AT 0700. ASSESSMENTS CHARTED. MEDICATIONS CHARTED. RAQUEL 3L PICC. SAPP. THORACOTOMY SCAR RT SIDE. [facility] ON SATURDAY. COVID SWAB DUE AT 0700 01/02/20.
[2021-01-01] VITALS (8 sets, daily range): BP systolic 104–131; BP diastolic 60–75
--- NOTE | 2021-01-01 04:51 | NUR ---
SLEPT MOST OF SHIFT PAST HS MEDICATIONS. VERY DROWSY BUT DOES AROUSE AND FOLLOW COMMANDS. ANSWERS QUESTIONS APPROPRIATLY. DENIES COMPLAINTS OF PAIN OR ANXIETY AT THIS TIME. WORKING ON GOALS AND PLAN OF CARE FOR NOC. PROGRESSING TOWARDS GOALS TO TRANSFER TO REHAB THIS WEEK. SIDE RAILS UP AND BED ALARM ON PER PATIENT REQUEST FOR FALL PRECAUTIONS AND SAFETY. CONTINUE TO ASSES CLOSELY. INCONTINENT OF SMALL LOOSE STOOL THIS SHIFT.
[2021-01-01 06:57] LABS: HEMATOCRIT 26.3 % (37.0-47.0); HEMOGLOBIN 8.1 gm/dL (12.0-15.0)
[2021-01-01 07:06] LABS: CALCIUM 9.3 mg/dL (8.5-10.1); POTASSIUM 4.2 mmol/L (3.5-5.1)
--- NOTE | 2021-01-01 18:10 | NUR ---
PT CARE ASSUMED AT 0700. ASSESSMENTS CHARTED. MEDICATIONS CHARTED. RAQUEL 3L PICC. SINUS RHYTHM. SAPP, REPOSITIONED AT 1800 THE URINE WASN'T FLOWING, CORRECTED PROBLEM. PLAN IS FOR PT TO BE DISCHARGED TO [facility] ON SATURDAY. PT DID NOT ASK FOR ANXIETY OR PAIN MEDICATION ALL SHIFT.
[2021-01-02 03:30] VITALS: BP 113/85
[2021-01-02 06:32] LABS: HEMATOCRIT 25.9 % (37.0-47.0); HEMOGLOBIN 8.1 gm/dL (12.0-15.0); MCH 28.5 pg (26.0-34.0); MCHC 31.3 g/dL (28.0-37.0); MCV 91.2 fL (80.0-100.0); RBC 2.84 mil/uL (4.20-5.00); RDW 23.2 % (10.5-14.5); WBC 11.2 thou/uL (4.0-11.0)
[2021-01-02 06:41] LABS: CALCIUM 9.1 mg/dL (8.5-10.1); CREATININE 1.7 mg/dL (0.6-1.0); POTASSIUM 4.2 mmol/L (3.5-5.1)
[2021-01-02 08:02] VITALS: BP 113/66
--- NOTE | 2021-01-02 08:10 | NUR ---
SLEPT ON AND OFF THROUGHOUT SHIFT. DENIES COMPLAINTS OF PAIN THIS SHIFT. RT PLACED ON BIPAP AND PATIENT KEPT ON UNTIL MN. STATES I CANT SLEEP WITH IT. PLACED BACK ON 3L/NC. WORKING ON GOALS AND PLAN OF CARE FOR NOC. REMAINS A/O X4 BUT FORGETFUL AT TIMES. ONE INCONTINENCE OF STOOL LAST NOC AND MEDS GIVEN. ANXIETY MEDS GIVEN NEEDED. CONTINUE TO ASSES CLOSLY
[2021-01-02] MEDS ORDERED: CARVEDILOL3.125 MG PO (11:10)
[2021-01-02] MEDS ORDERED: TRAZODONE HCL50 MG PO (11:11)
[2021-01-02] MEDS ORDERED: LANTUS SUBQ (11:12)
[2021-01-02] MEDS ORDERED: PREDNISONE 20 M20 MG PO (11:13)
[2021-01-02 11:50] VITALS: BP 107/66
--- NOTE | 2021-01-02 13:42 | NUR ---
PT IS AXOX3, ANXIOUS. PT DID NOT SLEEP WELL LAST NIGHT, C/O PAIN R MID BACK AT SITE OF THORACOTOMY. SITE IS CLEAN, APPROXIMATED, WITH NO REDNESS. PT AT THE BEDSIDE. PT IS CLEAR TO DIMINISHED, SOME COARSENESS, ON 3L VIA NC. POC IS TO CONTINUE PAIN MGMT, ANXIETY MGMT. PLAN TO DISCHARGE TO [facility] ON 01/02/21. HIGH FALL RISK PRECAUTIONS IN PLACE. NO CONCERNS AT THIS TIME.
[2021-01-02 15:59] VITALS: BP 119/73
--- NOTE | 2021-01-02 16:05 | NUR ---
PT DISCHARGING TODAY TO [facility] FAXED DC ORDERS/SUMMARY TO FACILITY SPOKE WITH TERRANCE IN ADM SHE RECEIVED ORDERS. TRANSPORT ARRANGED WITH [facility] FOR [phone] TODAY. FAMILY NOTIFIED AT THE BEDSIDE BY MASON MAZA) ALL IN AGREEMENT WITH DC PLAN. UNIT NOTIFIED AND CHART COPY PER US. RN TO CALL REPORT TO [phone]. PT WILL BE ADMITTED TO 324 AT [facility].
[2021-01-02 16:39] VITALS: BP 119/73
== END 2021-01-02 19:03 | DRG 280 ==
LOC: 2N 11:46
PROVIDERS: Internal Medicine; Internal Medicine Cardiovascular Disease; Internal Medicine Pulmonary Disease; ADMIT Hospitalist; ATTEND Hospitalist
DX: I13.0 Hypertensive heart and chronic kidney disease with heart failure and stage 1 through stage 4 chronic kidney disease, or unspecified chronic kidney disease (principal); J18.9 Pneumonia, unspecified organism; I21.4 Non-ST elevation (NSTEMI) myocardial infarction; I50.23 Acute on chronic systolic (congestive) heart failure; J96.21 Acute and chronic respiratory failure with hypoxia; J96.22 Acute and chronic respiratory failure with hypercapnia; N17.9 Acute kidney failure, unspecified; E44.0 Moderate protein-calorie malnutrition; J91.8 Pleural effusion in other conditions classified elsewhere; J84.89 Other specified interstitial pulmonary diseases; E78.5 Hyperlipidemia, unspecified; G89.29 Other chronic pain; E11.42 Type 2 diabetes mellitus with diabetic polyneuropathy; D64.9 Anemia, unspecified; F41.9 Anxiety disorder, unspecified; N18.9 Chronic kidney disease, unspecified; E11.22 Type 2 diabetes mellitus with diabetic chronic kidney disease; I25.5 Ischemic cardiomyopathy; J44.9 Chronic obstructive pulmonary disease, unspecified; I25.10 Atherosclerotic heart disease of native coronary artery without angina pectoris; Z20.822 Contact with and (suspected) exposure to COVID-19; Z88.8 Allergy status to other drugs, medicaments and biological substances; Z79.4 Long term (current) use of insulin; Z79.899 Other long term (current) drug therapy; Z90.49 Acquired absence of other specified parts of digestive tract; Z87.891 Personal history of nicotine dependence; Z95.5 Presence of coronary angioplasty implant and graft; Z68.35 Body mass index [BMI] 35.0-35.9, adult
CPT/HCPCS: 10081